=== PATIENT | male | born 1990 | race Caucasian/White ===

== ENCOUNTER 2019-12-08 22:39 | Emergency (ER) | payer OTHER ==
[2019-12-08] MEDS ORDERED: Orphenadrine 100 MG Tab.ER PO STA (23:24)
[2019-12-08] MEDS ORDERED: Ibuprofen 600 MG Tab PO ONE (23:24)
--- NOTE | 2019-12-08 23:32 | EDM.PDOC ---
ED HPI GENERAL MEDICAL PROBLEM - General Chief Complaint: Back Pain or Injury Stated Complaint: BACK PAIN Time Seen by Provider: 12/08/19 22:49 Source of Information: Reports: Patient History Limitations: Reports: No Limitations - History of Present Illness INITIAL COMMENTS - FREE TEXT/NARRATIVE: Mr. Tom is a very pleasant 29-year-old gentleman who now presents the ED with a complaint of mid back pain radiating down to his tailbone since Thursday night, 12/05/2019. The pain does not radiate to either buttock or down either lower extremity. He states that he has constant pain even if he is not moving, but his pain is made considerably worse if he moves or sneezes. His pain is also made worse with bearing down to have a bowel movement. 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 He states that he injured his tailbone in a snowboarding accident about 5 years ago. No recent fever or urinary symptoms. The patient states that he has been taking acetaminophen, ibuprofen, and applying IcyHot and a back brace, without significant improvement in his symptoms. Here in the ED, the patient's initial BP is found to be modestly elevated at 158/94, otherwise, he is hemodynamically stable, afebrile, saturating 100% on room air. Prior to Thursday, the patient denies having a recent fever, chills, sore throat, ear pain, nasal or sinus congestion, cough, dyspnea, chest pain, palpitations, nausea, vomiting, constipation, diarrhea, abdominal pain, urinary symptoms, recent weight gain or weight loss, recent bloody bowel movements or black bowel movements, recent joint aches, headaches, or rashes. The patient's PCP is Dr. Warner, in [place], [place]. The patient is working in this area for the next couple of days. Lower Back Pain Score (Numeric/FACES): 8 - Related Data Home Meds: Home Meds Orphenadrine [Norflex] 1 tab PO Q12H PRN #14 tab.er 12/08/19 [Rx] Past Medical History Musculoskeletal History: Reports: Fracture (left wrist x 2) - Past Surgical History HEENT Surgical History: Reports: Oral Surgery (dental extractions) Musculoskeletal Surgical History: Reports: ORIF (left wrist x 2) Social & Family History - Tobacco Use Smoking Status *Q: Never Smoker - Alcohol Use Alcohol Use History: Yes Alcohol Use Frequency: Socially - Recreational Drug Use Recreational Drug Use: No - Living Situation & Occupation Living situation: Reports: Single, Other (with friends) 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 ED EXAM,LOWER BACK PAIN/INJURY - Physical Exam Exam: See Below Exam Limited By: No Limitations General Appearance: Alert, WD/WN, Mild Distress (appears uncomfortable) Eye Exam: Bilateral Eye: EOMI, Normal Inspection Ears: Normal External Exam, Hearing Grossly Normal Nose: Normal Inspection Throat/Mouth: Normal Inspection, Normal Lips, Normal Voice, No Airway Compromise Head: Atraumatic, Normocephalic Neck: Normal Inspection, Full Range of Motion Respiratory/Chest: No Respiratory Distress, Lungs Clear, Normal Breath Sounds, No Accessory Muscle Use Cardiovascular: Normal Peripheral Pulses, Regular Rate, Rhythm, No Edema, No Gallop, No JVD, No Murmur, No Rub GI/Abdominal: Normal Bowel Sounds, Soft, Non-Tender, No Organomegaly, No Distention, No Abnormal Bruit, No Mass Back Exam: Normal Inspection (No visible abnormality to the patient's back, such as swelling, erythema, ecchymosis, or abrasion), Muscle Spasm (Bilateral mid back paraspinous muscles, Rt > Lt), Paraspinal Tenderness (mid-back primarily, less to the lower back), Other (Straight leg raise on the left induces pain in his coccyx at 20 degrees. Straight leg raise on the right induces pain in his sacrum at 30 degrees.). No: CVA Tenderness (L), CVA Tenderness (R), Vertebral Tenderness Extremities: Normal Inspection, Normal Range of Motion, No Pedal Edema, Normal Capillary Refill Neurological: Alert, Normal Dorsiflexion, Normal Plantar Flexion, No Motor/Sensory Deficits, Oriented x 3 Psychiatric: Normal Affect Skin Exam: Warm, Dry, Intact, Normal Color, No Rash Course - Vital Signs Last Recorded V/S: Last Vital Signs Temp 36.6 C 12/08/19 22:58 Pulse 87 12/08/19 22:58 Resp 16 12/08/19 22:58 BP 158/94 H 12/08/19 22:58 Pulse Ox 100 12/08/19 22:58 - Orders/Labs/Meds Orders: Active Orders 24 hr Category Date Time Status Ibuprofen [Motrin] Med 12/08/19 23:24 Once 600 mg PO ONETIME ONE Orphenadrine [Norflex] Med 12/08/19 23:24 Stat 100 mg PO ONETIME STA - Re-Assessments/Exams Free Text/Narrative Re-Assessment/Exam: 12/08/19 23:25 As above, the patient has been experiencing mid-back pain radiating to his tailbone since Thursday, made worse with movement. On examination, he has no tenderness to palpation along his entire lumbar and sacral spine, however, he does have reproducible tenderness to palpation of the mid-back paraspinal musculature, with palpable muscle spasm. I do not see an indication for an emergency imaging study. I will start the patient on Norflex and ibuprofen, and submit a prescription for Norflex. The patient can continue to take [id number] ibuprofen. I recommended that he stay active. I offered to write a note for work, however, he explained that the company that he works for is a new company and already behind on a job, therefore he simply cannot not work. Departure - Departure Time of Disposition: 23:27 Disposition: Home, Self-Care 01 Condition: Good Clinical Impression: Back muscle spasm - Discharge Information *PRESCRIPTION DRUG MONITORING PROGRAM REVIEWED*: Not Applicable *COPY OF PRESCRIPTION DRUG MONITORING REPORT IN PATIENT MILO: Not Applicable Referrals: PCP,Not In Area [Ordering Only Provider] - Additional Instructions: You were seen in the emergency room for mid-back pain radiating down to your tailbone since Thursday. Based on your history and physical examination, your back pain is due to muscle spasms. You have been started on the muscle relaxant Norflex as well as the anti- inflammatory medicine ibuprofen. A prescription for Norflex has been sent to the [facility], located just south and across the [address] from [facility]. Take 1 tablet of Norflex every 12 hours, starting tomorrow morning, 12/09/2019, as prescribed. Norflex works well with ibuprofen. Take 3 tablets (600 mg) of [id number] ibuprofen up to every 8 hours, with food, as needed for discomfort. As discussed, it is very important that you stay active. Swimming is best, but walking is good, as well. You may bend and twist your spine, however, we advise that you do not do so while lifting any significant weight. As discussed, we expect that you will have significant relief within 2 days. If you continue to have significant back pain despite taking Norflex and ibuprofen, please follow-up with your PCP or return to the ED for reevaluation. Sepsis Event Note (ED) - Evaluation Sepsis Screening Result: No Definite Risk - Focused Exam Vital Signs: Vital Signs Temp Pulse Resp BP Pulse Ox 12/08/19 22:58 36.6 C 87 16 158/94 H 100 - My Orders Last 24 Hours: My Active Orders 12/08/19 23:24 Ibuprofen [Motrin] 600 mg PO ONETIME ONE Orphenadrine [Norflex] 100 mg PO ONETIME STA - Assessment/Plan Last 24 Hours: My Active Orders 12/08/19 23:24 Ibuprofen [Motrin] 600 mg PO ONETIME ONE Orphenadrine [Norflex] 100 mg PO ONETIME STA
== END 2019-12-08 23:39 | disposition home or self-care (01) ==
LOC: JD.ED 22:39
DX: M62.830 Muscle spasm of back (principal)
CPT/HCPCS: 99283; A9270